=== PATIENT | female | born 1940 | race Caucasian/White ===

== ENCOUNTER 2018-05-26 05:57 | Day surgery (SDC) | payer MEDICARE ==
[2018-05-26] MEDS ORDERED: Buffered Lidocaine 0.9% SYRIN* 5 ML/SYR SYRINGE INTRADERM ONE (06:00)
[2018-05-26] MEDS ORDERED: ceFAZolin 2 GM PREMIX (*) 2 GM/50 ML BAG IVPB ONE (06:17)
[2018-05-26] MEDS ORDERED: Lidocaine 1%* 5 ML VIAL ONE ×3 (07:01→09:06)
[2018-05-26 07:05] LABS: ABS Basophils 0 10^3/ul (0-0.2); ABS Eosinophils 0.1 10^3/ul (0-0.6); ABS Lymphocytes 0.8 10^3/ul (1.0-4.8); ABS Monocytes 0.4 10^3/ul (0-0.8); ABS Neutrophils 2.3 10^3/ul (1.5-7.7); ABS Nucleated RBC 0 10^3/ul; Eosinophil % 1.4 % (0-6); Hematocrit 36 % (35-47); Hemoglobin 12.3 g/dl (12.0-16.0); Lymphocyte % 21.6 % (25-47); Mean Corpuscular HGB Conc 34 g/dl (31-36); Mean Corpuscular Hemoglobin 31 pg (27-31); Mean Corpuscular Volume 92 fL (80-97); Mean Platelet Volume 7.6 um3 (7.4-10.4); Nucleated Red Blood Cells % 0.1; Platelet Count 257 10^3/ul (150-450); Red Blood Count 3.95 10^6/ul (4.00-5.40); Red Cell Distribution Width 14 % (10.5-15); White Blood Count 3.6 10^3/ul (3.5-10.8)
[2018-05-26] MEDS ORDERED: Midazolam* 1 MG/ML 2 ML VIAL (2 MG) ONE (07:15)
[2018-05-26] MEDS ORDERED: fentaNYL* 50 MCG/ML 2 ML VIAL (100 MCG VIAL) ONE (07:15)
[2018-05-26 07:21] LABS: EGFR Non-African American 58.2 (>60)
[2018-05-26] MEDS ORDERED: Acetaminophen TAB* 325 MG PO PRN (07:31)
[2018-05-26] MEDS ORDERED: DiMENhydriNATE IV* 50 MG/ML VIAL IV PUSH PRN (07:31)
[2018-05-26] MEDS ORDERED: fentaNYL* 50 MCG/ML 2 ML VIAL (100 MCG VIAL) IV PRN (07:31)
[2018-05-26] MEDS ORDERED: Ondansetron INJ* 2 MG/ML VIAL IV PRN (07:31)
[2018-05-26] MEDS ORDERED: HYDROcodone/ACETAMIN 5-325 MG* 1 TAB PO PRN ×2 (07:31)
[2018-05-26] MEDS ORDERED: Naloxone* 0.4 MG/ML 1 ML VIAL IV PRN (07:31)
[2018-05-26] MEDS ORDERED: PROCHLORPERAZINE INJ 5 MG/ML 2 ML VIAL IV PRN (07:31)
[2018-05-26] MEDS ORDERED: Lidocaine 2% PF * 5 ML VIAL ONE (07:46)
[2018-05-26] MEDS ORDERED: diPHENhydraMINE IV* 50 MG/ML 1 ml VIAL (BENADRYL) ONE (07:49)
[2018-05-26] MEDS ORDERED: Propofol* 10 MG/ML 20 ML BTL IV PUSH ONE (08:28)
[2018-05-26] MEDS ORDERED: Famotidine IV* 10 MG/ML 2 ML (20 mg) ONE (08:28)
[2018-05-26] MEDS ORDERED: Dexamethasone IV* 4 MG/ML 1 ML (4 MG) ONE (08:28)
--- NOTE | 2018-05-26 08:42 | BRIEFOPN ---
Brief Operative Note - Surgery Procedures: OPERATIVE REPORT PRE-OP: Lymphoma POST-OP: Same PROCEDURE: Insertion of 8F left chest wall PowerPort SURGEON: MD Caryl ANESTHESIA:Local with MAC Dr. Gann ASST: none IVF:min EBL:min SPECIMEN:none DRAIN: none WOUND CLASS:One COMPLICATIONS: none TO PACU
--- NOTE | 2018-05-26 09:11 | RAD ---
HISTORY: s/p port placement COMPARISONS: April 29, 2014 VIEWS: 1: frontal portable view of the chest at 8:51 AM FINDINGS: LINES AND TUBES: A left-sided chest port is noted from subclavian approach with the tip overlying the cavoatrial junction. CARDIOMEDIASTINAL SILHOUETTE: The cardiomediastinal silhouette is normal for portable technique. PLEURA: The costophrenic angles are sharp. No pleural abnormalities are noted. LUNG PARENCHYMA: The lungs are clear. There is no appreciable pneumothorax. ABDOMEN: The upper abdomen is clear. There is no subphrenic gas. BONES AND SOFT TISSUES: No bone or soft tissue abnormalities are noted. IMPRESSION: LINES AND TUBES ABOVE. NO ACTIVE CARDIOPULMONARY DISEASE.
--- NOTE | 2018-05-26 09:12 | RAD ---
INDICATION: Chest port COMPARISONS: None relevant TECHNIQUE: Fluoroscopy was provided for a vascular access procedure. Total fluoroscopy time is: 53.2 seconds FINDINGS: Spot images demonstrate a left-sided chest port with the tip overlying the cavoatrial junction. IMPRESSION: FLUOROSCOPY WAS PROVIDED FOR A VASCULAR ACCESS PROCEDURE CPT II Codes: G9500
[2018-05-26] MEDS ORDERED: Acetaminophen TAB* 325 MG ONE (09:38)
[2018-05-26 10:01] VITALS: BP 141/69
--- NOTE | 2018-05-26 15:38 | PM ---
CC: Dr. Raquel Barber * [facility] NOTE: DATE OF PROCEDURE: 05/26/18 - SDS CHIEF COMPLAINT: Diffuse large B cell lymphoma. HISTORY: The patient is a 78-year-old female who was recently diagnosed with B cell lymphoma. We were contacted by Dr. Barber's office last week to see if we could perform a diagnostic lumbar puncture as a part of the workup for her B cell lymphoma. The patient was scheduled to undergo a PowerPort placement today. She was seen by Dr. Gann this morning preoperatively and he did discuss with the patient the procedure in detail and the risks, benefits, and alternatives to the procedure and obtained informed consent. The patient underwent the PowerPort placement and I am going to go ahead and do the diagnostic lumbar puncture. I had a chance to talk with the patient as well in the recovery area. She was awake and communicative and I did explain the procedure to her again and marked her back for the procedure. Informed consent was obtained. PROCEDURE: In the sitting position, her low back was prepped and draped in the usual sterile fashion. A 3 cc of 1% lidocaine was used for local anesthesia at the L3-L4 interspace. A 22-gauge introducer was passed into the interspinous space at L3-L4. A 3.5 inch 25-gauge Rena needle was passed through the introducer into the subarachnoid space with good free flow of clear cerebrospinal fluid. I collected 4 veils of cerebrospinal fluid. The needle and introducer were withdrawn. The CSF will be sent to the laboratory for analysis per Dr. Barber's orders. The patient tolerated the procedure well and she will follow up with Dr. Barber. [id number]/[facility] #: [id number] [facility] SYSTEMSusan
--- NOTE | 2018-05-27 03:35 | OP ---
CC: Dr. Raquel Barber, Oncology * DATE OF OPERATION: 05/26/18 - [facility] DATE OF : 38 SURGEON: Marlon Hutson MD ANESTHESIOLOGIST: Dr. Gann. ANESTHESIA: Local with monitored anesthesia care. PRE-OP DIAGNOSIS: Lymphoma. POST-OP DIAGNOSIS: Lymphoma. OPERATIVE PROCEDURE: Insertion of an 8-Malay left chest wall PowerPort. ESTIMATED BLOOD LOSS: Minimal. WOUND CLASSIFICATION: I. COMPLICATIONS: None. DRAINS: None. SPECIMENS: None. DESCRIPTION OF PROCEDURE: Written informed consent was obtained. The patient was taken to the operating room and placed in the supine position. The left chest wall was marked with indelible ink. The left and right chest and neck were prepped and draped in the usual sterile fashion. Time-out verification was completed. The patient was placed in Trendelenburg position. 1% lidocaine with epinephrine was infiltrated the area just below the left mid clavicular line. A 18-gauge Cook needle was then passed into the clavicle. Then on the first pass, the subclavian vein was punctured with good blood return. The guidewire was inserted under fluoroscopy into the right atrium. Next, a small transverse incision was made several centimeters below the initial puncture site in the chest wall and a subcutaneous pocket was made inferior to this, large enough to fit the port, which had been flushed. The catheter itself was then tunneled from the port site to the puncture site. Next, using the sheath dilator peel-away system under direct fluoroscopy, the catheter was placed into the right heart and adjusted in position at the junction between the right atrium in the superior vena cava. There was good blood return and it flushed nicely and the catheter was cut to the appropriate length, attached to the port in the usual fashion, which was placed into the pocket. The port was sutured into the pocket with 2 separate 3-0 Prolene sutures. The catheter flushed well and withdrew blood without difficulty. It was then flushed with heparin solution. Hemostasis was assured. The incisions were closed with running 3-0 and 4-0 Vicryl suture. Steri-Strips and occlusive sterile dressings were applied. The patient tolerated the procedure well and was taken to the recovery room in stable condition. Postprocedural chest x-ray showed the catheter to be in good position without evidence of pneumothorax. [id number]/[facility] #: [id number] [facility]OSPITALSusan
== END 2018-05-26 10:04 | disposition home or self-care (01) ==
LOC: OR 05:57
PROVIDERS: ATTEND Surgery
DX: C83.38 Diffuse large B-cell lymphoma, lymph nodes of multiple sites (principal); M51.37 Other intervertebral disc degeneration, lumbosacral region; Z79.891 Long term (current) use of opiate analgesic; J32.9 Chronic sinusitis, unspecified; K51.90 Ulcerative colitis, unspecified, without complications; Z79.899 Other long term (current) drug therapy; K57.90 Diverticulosis of intestine, part unspecified, without perforation or abscess without bleeding; M19.90 Unspecified osteoarthritis, unspecified site; I51.9 Heart disease, unspecified; R63.4 Abnormal weight loss
CPT/HCPCS: 36415; 71045; 76000; 80053; 85025; 85730; A9270-GY; C1788; J0690; J1100; J1200; J1642; J2250; J2704; J3010

== ENCOUNTER 2019-09-19 14:11 | Emergency (ER) | payer MEDICARE ==
--- OUTSIDE RECORDS SUMMARY | 2019-09-19 14:25 | XMS REPORT | Continuity of Care Document ---
:1940 External Reference #:[id number] Author Name Pavel Duke DO, MPH Address [address] [place] [address], [address] [place] [address] Care Team Providers Name Role Phone Karime Silva M.D. - Family Care Team Information Grant Administrator Medicine Raquel Barber M.D. - Medical Care Team Information Grant Administrator Oncology Problems Description No Information Available Social History Type Date Description Comments Sex Unknown ETOH Use Denies alcohol use Tobacco Use Start: Unknown Patient has never smoked Recreational Drug Use Denies Drug Use Smoking Status Reviewed: 09/11/19 Patient has never smoked Allergies, Adverse Reactions, Alerts Description No Known Drug Allergies Medications Active Medications SIG Qnty Indications Ordering Provider Date Gabapentin sig: take 1 30caps Pavel Duke DO, 06/30/2019 100mg capsules by mouth MPH Capsules every night. chronic pain. Oxycodone HCL si by mouth 45tabs Pavel Duke DO, 05/21/2019 5mg every 12 hours as MPH Tablets directed chronic pain patient Alprazolam si/2-1 by 45taPavel Headley DO, 05/01/2019 0.5mg mouth in the MPH Tablets morning and one at night Trazodone HCL si by mouth Unknown 100mg every night at Tablets bedtime as directed Probiotic 1 by mouth daily Unknown Tablets DR Atorvastatin Calcium 1 by mouth daily Unknown 10mg Tablets Multi Vitamin 1 by mouth daily Unknown Tablets Immunizations Description No Information Available Vital Signs Date Vital Result Comment 09/11/2019 1:16pm BP Systolic 120 mmHg BP Diastolic 74 mmHg Heart Rate 76 /min Respiratory Rate 20 /min Height 62 inches 5'2" Weight 132.00 lb Pain Level 6 Pain at this time. Pain Level With Medicine 5 on average with meds Pain Level Without Medicine 9 without meds Pain Level After Procedure 3 BP Systolic Recheck 116 mmHg Pulse:72 BP Diastolic Recheck 70 mmHg Pulse:72 BMI (Body Mass Index) 24.1 kg/m2 09/01/2019 2:00pm BP Systolic 122 mmHg BP Diastolic 70 mmHg Heart Rate 74 /min Respiratory Rate 20 /min Height 62 inches 5'2" Weight 131.00 lb Pain Level 6 Pain at this time. Pain Level With Medicine 5 on average with meds Pain Level Without Medicine 9 without meds BMI (Body Mass Index) 24.0 kg/m2 Results Description No Information Available Procedures Date Code Description Status 09/11/2019 64215 Injection For Nerve Block, Suprascapular Nerve Completed 09/11/201915256 Injection, Single Or Mutiple Trigger Points One Or Two Completed Muscles 09/11/2019 Injection, Tendon Origin/Insertion Completed 09/11/2019 Inject Tendon/Ligament Completed 07/30/2019 69632 Test Autonomic Nervous System, Sudomotor Completed 07/30/2019 45409 Test Autonomic Nervous System, Cardiovagal Innervation Completed 05/01/2019 24282 Brief Emotional/Behav Assessment W/ Scoring Doc Per Completed [facility] Medical Devices Description No Information Available Encounters Type Date Location Provider Dx Diagnosis Office Visit 09/11/2019 Main Office as Of Pavel Duke DO, G89.29 Other chronic pain 1:15p 12/05/13 MPH M54.2 Cervicalgia M65.88 Other synovitis and tenosynovitis, other site M46.02 Spinal enthesopathy, cervical region M79.12 Myalgia of auxiliary muscles, head and neck Office Visit 09/01/2019 2:00p Main Office as Pavel Duke G89.29 Other chronic Of 12/05/13 , MPH pain M54.2 Cervicalgia M54.5 Low back pain M43.16 Spondylolisthesis, lumbar region Z79.891 terminal system operator (current) use of opiate analgesic 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 nervous system Office Visit 07/30/2019 10:45a Main Office as Pavel Duke G89.29 Other chronic Of 12/05/13 DO, MPH pain M43.16 Spondylolisthesis, lumbar region M54.2 Cervicalgia M54.5 Low back pain Z79.891 senior living (current) use of opiate analgesic 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 nervous system Office Visit 06/30/2019 11:15a Main Office as Pavel Duke G89.29 Other chronic Of 12/05/13 DO, MPH pain M43.16 Spondylolisthesis, lumbar region Z79.891 senior living (current) use of opiate analgesic Office Visit 05/21/2019 9:45a Main Office as Pavel Duke G89.29 Other chronic Of 12/05/13 DO, MPH pain M54.5 Low back pain M43.16 Spondylolisthesis, lumbar region M48.061 Spinal stenosis, lumbar region without neurogenic doreen Z79.891 terminal system operator (current) use of opiate analgesic Office Visit 05/01/2019 9:00a Main Office as Pavel Duke G89.29 Other chronic Of 12/05/13 DO, MPH pain M54.5 Low back pain M43.16 Spondylolisthesis, lumbar region M48.061 Spinal stenosis, lumbar region without neurogenic doreen M54.2 Cervicalgia M25.561 Pain in right knee M79.604 Pain in right leg M79.641 Pain in right hand M79.601 Pain in right arm I67.9 Cerebrovascular disease, unspecified Z13.31 Encounter for screening for depression Z79.891 terminal system operator (current) use of opiate analgesic K51.819 Other ulcerative colitis with unspecified complications Z86.73 Prsnl hx of TIA (TIA), and cereb infrc w/o resid deficits 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, lymph nodes of head, face, and neck E78.2 Mixed hyperlipidemia F41.9 Anxiety disorder, unspecified Z71.89 Other specified counseling Z71.3 Dietary counseling and surveillance Assessments Date Code Description Provider 09/11/2019 G89.29 Other chronic pain Pavel Duke DO MPH 09/11/2019 M54.2 Cervicalgia Pavel Duke DO MPH 09/11/2019 M65.88 Other synovitis and tenosynovitis, other Duke, Pavel, DO , MPH site 09/11/2019 M46.02 Spinal enthesopathy, cervical region Duke, Pavel, DO, MPH 09/11/2019 M79.12 Myalgia of auxiliary muscles, head and neck Duke, Pavel, DO, MPH 09/01/2019 G89.29 Other chronic pain Duke, Pavel, DO, MPH 09/01/2019 M54.2 Cervicalgia Duke, Pavel, DO, MPH 09/01/2019 M54.5 Low back pain Duke, Pavel, DO, MPH 09/01/2019 M43.16 Spondylolisthesis, lumbar region Duke, Pavel, DO, MPH 09/01/2019 Z79.891 senior living (current) use of opiate analgesic Duke, Pavel , DO, MPH 09/01/2019 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, Pavel, DO , MPH nervous system 07/30/2019 G89.29 Other chronic pain Duke, Pavel, DO, MPH 07/30/2019 M43.16 Spondylolisthesis, lumbar region Duke, Pavel, DO, MPH 07/30/2019 M54.2 Cervicalgia Duke, Pavel, DO, MPH 07/30/2019 M54.5 Low back pain Duke, Pavel, DO, MPH 07/30/2019 Z79.891 terminal system operator (current) use of opiate analgesic Duke, Pavel , DO, MPH 07/30/2019 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, Pavel, DO , MPH nervous system 06/30/2019 G89.29 Other chronic pain Duke, Pavel, DO, MPH 06/30/2019 M43.16 Spondylolisthesis, lumbar region Duke, Pavel, DO, MPH 06/30/2019 Z79.891 senior living (current) use of opiate analgesic Duke, Pavel , DO, MPH 05/21/2019 G89.29 Other chronic pain Duke, Pavel, DO, MPH 05/21/2019 M54.5 Low back pain Duke, Pavel, DO, MPH 05/21/2019 M43.16 Spondylolisthesis, lumbar region Duke, Pavel, DO, MPH 05/21/2019 M48.061 Spinal stenosis, lumbar region without Duke, Pavel, DO, MPH neurogenic claudication 05/21/2019 Z79.891 terminal system operator (current) use of opiate analgesic Duke, Pavel , DO, MPH 05/01/2019 G89.29 Other chronic pain Duke, Pavel, DO, MPH 05/01/2019 M54.5 Low back pain Duke, Pavel, DO, MPH 05/01/2019 M43.16 Spondylolisthesis, lumbar region Duke, Pavel, DO, MPH 05/01/2019 M48.061 Spinal stenosis, lumbar region without Duke, Pavel, DO, MPH neurogenic claudication 05/01/2019 M54.2 Cervicalgia Duke, Pavel, DO, MPH 05/01/2019 M25.561 Pain in right knee Duke, Pavel, DO, MPH 05/01/2019 M79.604 Pain in right leg Duke, Pavel, DO, MPH 05/01/2019 M79.641 Pain in right hand Duke, Pavel, DO, MPH 05/01/2019 M79.601 Pain in right arm Duke, Pavel, DO, MPH 05/01/2019 I67.9 Cerebrovascular disease, unspecified Duke, Pavel, DO, MPH 05/01/2019 Z13.31 Encounter for screening for depression Duke, Pavel, DO, MPH 05/01/2019 Z79.891 senior living (current) use of opiate analgesic Duke, Pavel , DO, MPH 05/01/2019 K51.819 Other ulcerative colitis with unspecified Duke, Pavel, DO, MPH complications 05/01/2019 Z86.73 Personal history of transient ischemic Duke, Pavel, DO, MPH attack (TIA), and cerebral infarction without residual deficits 05/01/2019 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 Symptoms and complaints discussed and reviewed today. No significant changes in physical findings. Continue current medical pain management.M54.2 CervicalgiaComments:Chronic. Symptoms and complaints discussed and reviewed today. Physical findings warrant injection therapy. Continue current medical pain management. Injection therapy performed today. Informed consentgiven/refusal reviewed. See procedure sheet. Injection therapy will lower this patient's pain, increase ROM improve functionality and mitigate the need for increased medication.M65.88 Other synovitis and tenosynovitis, other siteComments:Chronic. Symptoms and complaints discussed and reviewed today. Physical findings reviewed and warrant intervention. Continue current medical pain management. Injection therapy today - tendon sheath. Informed consent given/refusal reviewed. See procedure sheet.M46.02 Spinal enthesopathy, cervical regionComments:Chronic. Symptoms and complaints discussed and reviewed today. Physical findings reviewed and warrant intervention. Patient is stable and comfortable with current medical therapy. Injection therapy today.Tendon I/ O injections performed. See procedure sheet.M79.12 Myalgia of auxiliary muscles , head and neckComments:Symptoms and complaints discussed and reviewed today. Physical findings reviewed and warrant intervention. Injection therapy today - Trigger Point injections. Informed consent given/refusal reviewed. See procedure sheet.AllComments:Continue current medical pain management; injection therapy, osteopathic manipulation, PT / modalities, and consults as needed to manage chronic pain.Non - opioid pain management discussed and optionsdiscussed.Side effects discussed; anticipatory guidance given. Patient clearly understand and agree with all medical treatments and suggestions. All medicines prescribed are adequate and appropriate for this patient's complaint of pain, medical history, physical, and personal goals.Goals of Treatment are to provide adequate and appropriate multidisciplinary medical pain management to increase/ maintain patient's quality of life and functionality while maintaining satisfactory side effect profile andminimizing chcf end-organ damage. Importance of regular nutrition throughout the day discussed.Activity as toleratedContinue with PCP Functional Status Description No Information Available Mental Status Description No Information Available Referrals Description No Information Available
--- OUTSIDE RECORDS SUMMARY | 2019-09-19 14:25 | XMS REPORT | Continuity of Care Document ---
:1940 External Reference #:[id number] Author Name Karime Basilio MD Address [address] [place] [address] Care Team Providers Name Role Phone Juan Alberto Gandhi MD Care Team Information Soap Tender [phone] Kemi Fagan - Ophthalmology Care Team Information Soap Tender Mariano Baeza MD - Obstetrics & Care Team Information Soap Tender [phone] Gynecology Diane Marino - Gastroenterology Care Team Information Soap Tender Jon Al MD Care Team Information Soap Tender [phone] Lyndsay Briscoe M.D. - Sports Medicine Care Team Information [facility]ap Tender [facility] - Pain Care Team Information Soap Tender Medicine Michael Bird - Cardiovascular Care Team Information Soap Tender Disease MoxeeJerardo sheldoneal - Therapeutic Care Team Information Soap Tender [phone] Radiology José Manuel Anderson MD - Care Team Information Soap Tender [phone] Gastroenterology Bashir Gómez DPM - Management Lecturer Care Team Information Soap Tender Andrey Mejias MD - Surgery Care Team Information Soap Tender Keegan Cadena DR Care Team Information Soap Tender [phone] Care Team Information Soap Tender [phone] Vinicio Cleveland MD Care Team Information Soap Tender [phone] Problems Active Problems Provider Date Backache Pamela Troy PA Onset: 03/12/2013 Spinal stenosis of lumbar region Pamela Troy PA Onset: 11/30/2011 Ulcerative colitis Basim Flores MD Onset: 11/19/2008 Degeneration of cervical intervertebral disc Karime Basilio MD Onset: 05/2019 Arthroplasty of knee Karime Basilio MD Onset: 09/18/2018 Disturbance in sleep behavior Karime Basilio MD Onset: 09/18/2018 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 Karime Basilio MD Onset: 2017 Mixed hyperlipidemia Karime Basilio MD Onset: 09/18/2018 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, face Karime Basilio MD Onset: and neck Cerebrovascular disease Karime Basilio MD Onset: 09/18/2018 History of cerebrovascular accident without Karime Basilio MD Onset: 09/18 residual deficits Liver function tests abnormal Karime Basilio MD Onset: 09/18/2018 Social History Type Date Description Comments Sex Unknown ETOH Use Rarely consumes alcohol Tobacco Use Start: Unknown Patient has never smoked Smoking Status Reviewed: 09/18/18 Patient has never smoked Exercise Exercises regularly tennis, walk, Type/Frequency calisthenics; 12/20/16 counselled 150min per week 93605 steps per day Allergies, Adverse Reactions, Alerts Description No Known Drug Allergies Medications Active Medications SIG Qnty Indications Ordering Provider Date Omeprazole 1 by mouth every 30caps R11.0 Karime Basilio, 06/05/2019 20mg day 30min before Capsules DR hoda meal, treat for 2 weeks then as needed Alprazolam 1/2-1 tab bid F43.25 Raquel Barber 05/07/2018 0.5mg prn MD Tablets G47.9 Atorvastatin Calcium 1 by mouth every 90tabs E78.2 Karime Basilio MD 10mg day Tablets Trazodone HCL take 1 tablet by 90tabs G47.9 Karime Basilio MD 100mg Tablets mouth at bedtime as needed Probiotic 1 by mouth every Unknown Capsules day Multivitamin Adult 1 by mouth every Unknown Tablets day Oxycodone HCL 1-2 q 4-6 hr prn Unknown 5mg Tablets History Medications Ondansetron HCL 1 by mouth 6tabs R11.0 Karime Basilio MD 05/25/2019 - 8mg every 12 hours 08/09/2019 Tablets as needed for nausea Medications Administered in Office Medication SIG Qnty Indications Ordering Provider Date Depo Medrol 40 MG Karime Basilio MD 03/13/2017 Injection Immunizations CPT Code Status Date Vaccine Reaction Lot # [id number] Given 07/30/2019 Influenza Vaccine, Inactivated, Subunit, [place] [address] Given 05/21/2019 Shingrix (Shingles) Zoster given at pharmacy Vaccine HZV, Recombinant, Subunit, Adj 64301 Given 03/19/2019 Shingrix (Shingles) Zoster Vaccine HZV, Recombinant, Subunit, Adj 37028 Given 08/05/2018 Fluzone Highdose Age 65 And Over Preservative & Antibiotic Free 63455 Given 09/05/2017 Pneumococcal 23 Immunization Im inj completed, Pt [id number] Adult Or Immunosuppressed tolerated well Patient 31345 Given 08/12/2017 Influenza Virus Vaccine,Quadrivalent,Split,Pr eserv Free, 0.5mL,[place] [address] Given 08/13/2016 Prevnar 13 Pneumococal [id number] Conjugate Vaccine 68989 Given 08/09/2016 Fluzone Highdose Age 65 And [facility] Over Preservative & Antibiotic Free 33460 Given 08/18/2014 Afluria Or Fluvirin Flu Vac Intramuscular 95520 Given 08/06/2013 Afluria Or Fluvirin Flu Vac Intramuscular 48721 Given 08/10/2008 Zoster (Zostavax) 14754 Given 08/10/2008 Zoster (Zostavax) 71758 Refused 12/20/2016 Tdap (Adacel) Ages 7 And Above Only Vital Signs Date Vital Result Comment 08/10/2019 8:42am Body Temperature 97.2 F Weight 130.00 lb Heart Rate 62 /min BP Systolic 138 mmHg BP Diastolic 72 mmHg Respiratory Rate 18 /min Height 61.5 inches 5'1.50" O2 % BldC Oximetry 99 % Ra BMI (Body Mass Index) 24.2 kg/m2 07/07/2019 11:36am Body Temperature 99.0 F Weight 127.00 lb Heart Rate 76 /min BP Systolic 122 mmHg BP Diastolic 70 mmHg Respiratory Rate 18 /min Height 61.5 inches 5'1.50" O2 % BldC Oximetry 98 % ra BMI (Body Mass Index) 23.6 kg/m2 Results Test Date Facility Test Result H/L Range Note Hepatic Panel (LFT) 06/26/2019 [facility] Total Protein 5.8 g/dL Low 6.0- 8.0 1 Albumin 3.9 g/dL 3.6-4.9 Total Bilirubin 0.5 mg/dL 0.1-1.3 Direct Bilirubin 0.1 mg/dL 0.0-0.4 Alkaline Phosphatase 101 U/L 24-140 Alt 29 U/L 3-42 Ast 26 U/L 8-42 Alk Phos Isoenzymes-RL 06/26/2019 [facility] Alk Phos Total 103 U/L 2 Alk Phos Liver Calc 77 U/L 3 Alk Phos Bone Calc 26 U/L 4 Alk Phos Other Calc 0 U/L 5 CBC with Auto Diff-fcmg 06/05/2019 [facility] WBC 4.5 K/uL 4.1-11.0 6 RBC 4.40 M/uL 4.00-5.40 Hemoglobin 14.0 gm/dL 12.0-16.0 Hematocrit 41.5 % 36.0-47.0 MCV 94.4 fL 80.0-97.0 MCH 31.9 pg 27.0-32.0 MCHC 33.8 g/dL 32.0-36.0 RDW 13.4 % 11.5-14.5 PLT Count 207 K/ul 140-400 MPV 9.3 FL 7.1-10.7 Neutrophil 68.5 % 35.0-75.0 Lymphocyte 21.1 % 16.0-52.0 Monocyte 9.5 % 2.0-10.0 Eosinophil 0.3 % 0.0-5.0 Basophil 0.6 % 0.0-4.0 Abs Neutrophils 3.1 K/uL 2.1-8.0 Abs Lymphocytes 0.9 K/uL 0.8-5.5 Abs Monocytes 0.4 K/uL 0.1-1.0 Abs Eosinophils 0.0 K/uL 0.0-0.5 Abs Basophils 0.0 K/uL 0.0-0.3 Urinalysis With 06/04/2019 [facility] Urine Color YELLOW Yellow 7 Microscopic (315)- - Urine Clarity CLEAR Clear Urine Glucose - Dipstick NEGATIVE mg/dL Negative Urine Bilirubin - Dipstick NEGATIVE Negative Urine Ketone NEGATIVE mg/dL Negative Urine Specific [place] <= 1.005 Low 1.010-1.030 Urine Blood TRACE Negative Urine PH 6.5 Normal 6.5-7.5 Urine Protein - Dipstick NEGATIVE mg/dL Negative Urine Urobilinogen - Dipstick 0.2 E.U./dL Normal 0.2-1.0 Urine Nitrite - Dipstick NEGATIVE Negative Urine Leuk Esterase SMALL Abnormal Negative Urine RBC 0-2 rbc/hpf 0-2 Urine WBC 0-2 wbc/hpf 0-7 Urine Epithelial Cells VERY FEW /lpf None Seen Urine Bacteria VERY FEW None Seen Source: URINE, CLEAN CAT <SEE NOTE> 8 Comprehensive Metabolic 06/04/2019 [facility] Glucose 126 mg/dL High 74-106 Panel (315)- - BUN 12 mg/dL Normal 7-18 Creatinine 0.9 mg/dL Normal 0.6-1.3 Glom Filtration Rate, Estimate >60 mL/min >60 If >60 mL/min >60 9 BUN/Creat 13.3 ratio Sodium 140 mmol/L Normal 136-145 Potassium 3.9 mmol/L Normal 3.5-5.1 Chloride 107 mmol/L Normal 98-107 Carbon Dioxide 26 mmol/L Normal 21-32 Anion Gap 7 mEq/L Low 8-16 Calcium 9.2 mg/dL Normal 8.5-10.1 Total Protein 6.9 g/dL Normal 6.4-8.2 Albumin 3.5 g/dL Normal 3.4-5.0 Globulin 3.4 g/dL Normal 1.9-4.3 Alb/Glob 1.0 ratio Bilirubin,Total 0.4 mg/dL Normal 0.2-1.0 Sgot/Ast 26 U/L Normal 15-37 SGPT/Alt 36 U/L Normal 12-78 Alkaline Phosphatase 132 U/L High 45-117 Laboratory test 06/04/2019 [facility] Lipase 194 U/L Normal 56-289 finding (315)- - CBS W/Automated 06/04/2019 [facility] White Blood 5.9 K/ uL Normal 3.1-10.7 Diff (315)- - Count Red Blood Count 4.51 M/uL Normal 3.90-5.40 Hemoglobin 14.3 gm/dL Normal 11.6-15.8 Hematocrit 42.9 % Normal 36.0-46.1 Mean Cell Volume 95.1 fl Normal 80.9-99.0 Mean Corpuscular HGB 31.7 pg Normal 25.9-32.7 Mean Corpuscular HGB Conc 33.3 g/dL Normal 30.8-34.3 Platelet Count 224 K/uL Normal 155-360 Red Cell Distri Width SD 46.8 fl Normal 36-47 Red Cell Distri Width %CV 13.4 % Normal 11.7-14.4 Mean Platelet Volume 11.4 fl Normal 8.9-12.4 Neut% 75.3 % High 40.4-72.8 Lymph % 14.4 % Low 20.0-42.0 [place] % 8.4 % Normal 4.3-13.2 Eo% 1.2 % Normal 0.0-6.6 Bas% 0.5 % Normal 0.0-1.1 Immature Grans 0.2 % Normal 0.0-5.0 NRBC % 0.0 /100WBC < 10/ 100 WBC Neut# 4.41 K/uL Normal 1.8-7.0 Lymph # 0.84 K/uL Low 1.0-4.0 [place] # 0.49 K/uL Normal 0.3-0.9 Eos # 0.07 K/uL Normal 0.0-0.5 Baso # 0.03 K/uL Normal 0.0-0.1 Immature Grans Absolute 0.01 K/uL NRBC # 0.00 K/uL Protime 06/04/2019 [facility] Protime 13.2 seconds Normal 12.0-14.4 (315)- - Inr 1.0 Normal 0.9-1.1 10 Laboratory test 06/04/2019 [facility] Act Partial 26.6 seconds Normal 23.4-35.0 11 finding (315)- - Thrombo Time Laboratory test 06/04/2019 [facility] Occult NEGATIVE Negative 12 finding (315)- - Blood,Stool Lactic Acid 06/04/2019 [facility] Lactic Acid 1.9 mmol/L Normal 0.4-1.9 (315)- - Lab Reflex >2.0 for Sepsis? Y [facility] 05/25[facility]2019 [facility] WBC 4.1 K/uL 4.1-11.0 13 RBC 4.19 M/uL 4.00-5.40 Hemoglobin 13.7 gm/dL 12.0-16.0 Hematocrit 39.9 % 36.0-47.0 MCV 95.2 fL 80.0-97.0 MCH 32.7 pg High 27.0-32.0 MCHC 34.3 g/dL 32.0-36.0 RDW 13.6 % 11.5-14.5 PLT Count 194 K/ul 140-400 MPV 9.3 FL 7.1-10.7 Neutrophil 70.1 % 35.0-75.0 Lymphocyte 15.7 % Low 16.0-52.0 Monocyte 10.7 % High 2.0-10.0 Eosinophil 3.0 % 0.0-5.0 Basophil 0.5 % 0.0-4.0 Abs Neutrophils 2.9 K/uL 2.1-8.0 Abs Lymphocytes 0.7 K/uL Low 0.8-5.5 Abs Monocytes 0.4 K/uL 0.1-1.0 Abs Eosinophils 0.1 K/uL 0.0-0.5 Abs Basophils 0.0 K/uL 0.0-0.3 Comprehensive Met Panel-[facility] 05/25/2019 [facility] Sodium 143 mmol/L 135- 146 14 Potassium 4.4 mmol/L 3.5-5.2 Chloride# 105 mmol/L 97-110 15 Carbon Dioxide 30 mmol/L 24-34 Calcium 9.2 mg/dL 8.5-10.5 16 Glucose 100 mg/dL 70-105 BUN 12 mg/dL 6-26 Creatinine 0.7 mg/dL 0.5-1.4 Total Protein 5.8 g/dL Low 6.0-8.0 Albumin 3.8 g/dL 3.6-4.9 Globulin 2.0 g/dL 2.0-3.5 A/G Ratio 1.9 Ratio 1.0-2.2 Total Bilirubin 0.4 mg/dL 0.1-1.3 Alkaline Phosphatase 149 U/L High 24-140 Alt 52 U/L High 3-42 Ast 35 U/L 8-42 Anion Gap 8 mmol/L 5-15 17 Female Egfr 80 >60 18 Male Egfr 89 >60 19 Comprehensive Met Panel-[facility] 03/11/2019 [facility] Sodium 141 mmol/L 135- 146 20, 21 Potassium 4.2 mmol/L 3.5-5.2 Chloride# 103 mmol/L 97-110 22 Carbon Dioxide 30 mmol/L 24-34 Calcium 9.7 mg/dL 8.5-10.5 23 Glucose 101 mg/dL 70-105 BUN 11 mg/dL 6-26 Creatinine 0.8 mg/dL 0.5-1.4 Total Protein 6.1 g/dL 6.0-8.0 Albumin 4.2 g/dL 3.6-4.9 Globulin 1.9 g/dL Low 2.0-3.5 A/G Ratio 2.2 Ratio 1.0-2.2 Total Bilirubin 0.7 mg/dL 0.1-1.3 Alkaline Phosphatase 109 U/L 24-140 Alt 31 U/L 3-42 Ast 28 U/L 8-42 Anion Gap 8 mmol/L 5-15 24 Female Egfr 66 >60 25 Male Egfr 83 >60 26 Laboratory test finding 03/11/2019 [facility] CPK 84 U/L 12-199 Lipid 03/11/2019 [facility] Cholesterol 202 mg/dL High 50-199 Triglycerides 73 mg/dL 30-200 HDL 80 mg/dL 35-85 27 Chol/ HDL Ratio 2.5 ratio Low 3.7-5.6 VLDL 15 mg/dL 2-29 LDL (Calc) 107 mg/dL High 20-99 28 1 elev labs, recheck in 1 mo 2 Reference range: 40 to 120 3 Reference range: 0 to 94 INTERPRETIVE INFORMATION: Alk-Phosphatase Liver Calc Bone Specific Alkaline Phosphatase (3455926) and 5'-nucleotidase ([id number]) may be useful in identifying disorders of bone and liver, respectively. 4 Reference range: 0 to 55 5 Performed by [facility], [address] [place] [id number] [email or web address], Aaron Koo MD, Lab. Director Unless otherwise specified, testing performed by [facility], [address] [address] 6 today letter [address] BASILIO,BLCK STOOLS,NAUSEA 8 URINE, CLEAN CATCH 9 Note: Persistent reduction for 3 months or more in an eGFR <60 mL/min/1.73 m2 defines CKD. Patients with eGFR values >/=60 mL/min/1.73 m2 may also have CKD if evidence of persistent proteinuria is present. The original MDRD equation for estimated GFR is not valid for patients less than 18 years of age. Additional information may be found at www.kdoqi.org. 10 THERAPEUTIC INR RANGE: 2.0 - 3.0 DVT, Pulmonary embolus, prophylaxis against venous thrombosis or systemic embolization in high risk patients. 2.5 - 3.5 Mechanical heart valves 11 Is patient on anticoagulants? Coumadin 12 Method: Synovex Hemoccult Card 13 today tc for nausea/dizziness 14 Updated reference range on new analyzer 15 Updated reference range on new analyzer 16 Updated reference range 03-04-2019 17 Updated Reference Range 18 Concerning GFR Guidelines for Americans: Normal function or mild renal disease, if clinically at risk: >/= 60 mL/min Moderately decreased: 30-59 Severely decreased: 15-29 Renal failure: <15 There is reduced accuracy above 60ml/min/1.73 m squared, but the numeric value may be clinically useful in the near 60 range 19 Concerning GFR Guidelines: Normal function or mild renal disease, if clinically at risk: >/= 60 mL/min Moderately decreased: 30-59 Severely decreased: 15-29 Renal failure: <15 There is reduced accuracy above 60ml/min/1.73 m squared, but the numeric value may be clinically useful in the near 60 range Glomerular Filtration Rate (GFR) is estimated based on the CKD-EPI equation, which assumes a steady state for creatinine as recommended by the National Kidney Disease Education Program in conjunction with the National Institutes of Health and the National Kidney Foundation. Clinical conditions in which it may be necessary to measure GFR by using clearance methods include extremes of age and body size, severe malnutrition or obesity, diseases of skeletal muscle, paraplegia or quadriplegia, vegetarian diet, rapidly changing kidney function, and calculation of the dose of potentially toxic drugs that are excreted by the kidneys. 20 before visit 03/2019 21 Updated reference range on new analyzer 22 Updated reference range on new analyzer 23 Updated reference range 03-04-2019 24 Updated Reference Range 25 Concerning GFR Guidelines for Americans: Normal function or mild renal disease, if clinically at risk: >/= 60 mL/min Moderately decreased: 30-59 Severely decreased: 15-29 Renal failure: <15 There is reduced accuracy above 60ml/min/1.73 m squared, but the numeric value may be clinically useful in the near 60 range 26 Concerning GFR Guidelines: Normal function or mild renal disease, if clinically at risk: >/= 60 mL/min Moderately decreased: 30-59 Severely decreased: 15-29 Renal failure: <15 There is reduced accuracy above 60ml/min/1.73 m squared, but the numeric value may be clinically useful in the near 60 range Glomerular Filtration Rate (GFR) is estimated based on the CKD-EPI equation, which assumes a steady state for creatinine as recommended by the National Kidney Disease Education Program in conjunction with the National Institutes of Health and the National Kidney Foundation. Clinical conditions in which it may be necessary to measure GFR by using clearance methods include extremes of age and body size, severe malnutrition or obesity, diseases of skeletal muscle, paraplegia or quadriplegia, vegetarian diet, rapidly changing kidney function, and calculation of the dose of potentially toxic drugs that are excreted by the kidneys. 27 Per NCEP ATP III Guidelines: Results lower than 40 mg/dL are suggestive of increased risk for coronary artery disease. Results > or = to 60 mg/dL are considered a negative risk factor. 28 Per NCEP ATP III Guidelines: Normal Population <130 Patients with medical conditions: CHD/DM Optimal: <100 Borderline high: 130-159 High: 160-189 Very high: >189 Procedures Date Code Description Status 03/18/2019 50061 Brief Emotional/Behav Assessment W/ Scoring Doc Per Completed Standard Inst 01/09/2019 15698792 Colonoscopy Completed 11/13/2016 473999383 Bone Mineral Density Test Completed 09/01/2015 00480291 Colonoscopy Completed Medical Devices Description No Information Available Encounters Type Date Location Provider Dx Diagnosis Office Visit 07/07/2019 [facility] Karime Basilio, N94.810 Vulvar vestibulitis 11:30a R10.31 RIGHT lower quadrant pain M48.061 Spinal stenosis, lumbar region without neurogenic doreen M51.36 Other intervertebral disc degeneration, lumbar region R10.2 Pelvic and perineal pain Office Visit 06/29/2019 11:30a [facility] Karime Basilio MD K13.79 Other lesions of oral mucosa 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, lymph nodes of head, face, and neck Office Visit 06/05/2019 1:15p [facility] Karime Basilio MD R11.0 Nausea R42 Dizziness and giddiness R19.5 Other fecal abnormalities G47.9 Sleep disorder, unspecified Office Visit 05/25/2019 10:00a [facility] Karime Basilio MD R11.0 Nausea R42 Dizziness and giddiness I95.1 Orthostatic hypotension 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, lymph nodes of head, face, and neck L29.8 Other pruritus Office Visit 03/18/2019 8:45a [facility] Karime Basilio MD 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, lymph nodes of head, face, and neck E78.2 Mixed hyperlipidemia F41.9 Anxiety disorder, unspecified Z86.73 Prsnl hx of TIA (TIA), and cereb infrc w/o resid deficits I67.9 Cerebrovascular disease, unspecified M48.061 Spinal stenosis, lumbar region without neurogenic doreen M51.36 Other intervertebral disc degeneration, lumbar region K51.819 Other ulcerative colitis with unspecified complications F43.25 Adjustment disorder w mixed disturb of emotions and conduct G47.9 Sleep disorder, unspecified M25.561 Pain in RIGHT knee Assessments Date Code Description Provider 08/10/2019 M51.36 Other intervertebral disc degeneration, Karime Basilio MD lumbar region 08/10/2019 M48.061 Spinal stenosis, lumbar region without Karime Basilio MD neurogenic claudicati 08/10/2019 M50.30 Other cervical disc degeneration, unspecified Karime Basilio MD cervical region 07/07/2019 N94.810 Vulvar vestibulitis Karime Basilio MD 07/07/2019 R10.31 RIGHT lower quadrant pain aKrime Basilio MD 07/07/2019 M48.061 Spinal stenosis, lumbar region without Karime Basilio MD neurogenic claudicati 07/07/2019 M51.36 Other intervertebral disc degeneration, Karime Basilio MD lumbar region 07/07/2019 R10.2 Pelvic and perineal pain Karime Basilio MD 06/29/2019 K13.79 Other lesions of oral mucosa Karime Basilio MD 06/29/2019 C85.11 Unspecified B-cell lymphoma, lymph nodes of Karime Basilio MD head, face, and 06/26/2019 R94.5 Abnormal results of liver function studies Karime Basilio MD 06/26/2019 R94.5 Abnormal results of liver function studies Schedule, Laboratory 06/26/2019 R94.5 Abnormal results of liver function studies [facility] 06/05/2019 R11.0 Nausea Karime Basilio MD 06/05/2019 R11.0 Nausea Karime Basilio MD 06/05/2019 R19.5 Other fecal abnormalities Karime Basilio MD 06/05/2019 R42 Dizziness and giddiness Karime Basilio MD 06/05/2019 R19.5 Other fecal abnormalities Karime Bsailio MD 06/05/2019 G47.9 Sleep disorder, unspecified Karime Basilio MD 06/05/2019 R11.0 Nausea Schedule, Laboratory 06/05/2019 R19.5 Other fecal abnormalities Schedule, Laboratory 06/05/2019 R11.0 Nausea [facility] 06/05/2019 R19.5 Other fecal abnormalities [facility] 05/25/2019 R11.0 Nausea Karime Basilio MD 05/25/2019 R11.0 Nausea Karime Basilio MD 05/25/2019 R42 Dizziness and giddiness Karime Basilio MD 05/25/2019 R42 Dizziness and giddiness Karime Basilio MD 05/25/2019 I95.1 Orthostatic hypotension Karime Basilio MD 05/25/2019 I95.1 Orthostatic hypotension Karime Basilio MD 05/25/2019 C85.11 Unspecified B-cell lymphoma, lymph nodes of Karime Basilio MD head, face, and 05/25/2019 L29.8 Other pruritus Karime Basilio MD 05/25/2019 R11.0 Nausea Schedule, Laboratory 05/25/2019 R42 Dizziness and giddiness Schedule, Laboratory 05/25/2019 I95.1 Orthostatic hypotension Schedule, Laboratory 05/25/2019 R11.0 Nausea [facility] 05/25/2019 R42 Dizziness and giddiness [facility] 05/25/2019 I95.1 Orthostatic hypotension [facility] 03/18/2019 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 Karime Basilio MD 03/18/2019 C85.11 Unspecified B-cell lymphoma, lymph nodes of Karime Basilio MD head, face, and 03/18/2019 E78.2 Mixed hyperlipidemia Karime Basilio MD 03/18/2019 F41.9 Anxiety disorder, unspecified Karime Basilio MD 03/18/2019 Z86.73 Personal history of transient ischemic attack Karime Basilio MD (TIA), and cer 03/18/2019 I67.9 Cerebrovascular disease, unspecified Karime Basilio MD 03/18/2019 M48.061 Spinal stenosis, lumbar region without Karime Basilio MD neurogenic claudicati 03/18/2019 M51.36 Other intervertebral disc degeneration, Karime Basilio MD lumbar region 03/18/2019 K51.819 Other ulcerative colitis with unspecified Karime Basilio MD complications 03/18/2019 F43.25 Adjustment disorder with mixed disturbance of Karime Basilio MD emotions and c 03/18/2019 G47.9 Sleep disorder, unspecified Karime Basilio MD 03/18/2019 M25.561 Pain in RIGHT knee Karime Basilio MD 03/11/2019 E78.2 Mixed hyperlipidemia Karime Basilio MD 03/11/2019 E78.2 Mixed hyperlipidemia Schedule, Laboratory 03/11/2019 E78.2 Mixed hyperlipidemia [facility] Plan of Treatment Future Appointment(s):09/22/2019 9:00 am - Karime Basilio MD at [facility]2018 8:05 am - Schedule, Laboratory at [facility]08/10/2019 - Karime Basilio MDM51.36 Other intervertebral disc degeneration, lumbar regionComments:pt wants surgical opinion referral to neuro surgery Dr Espinoza, may want 2nd opinion Dr Ferreira, she wll call for that.Referral:Vinicio Cleveland MD,M48.061 Spinal stenosis, lumbar region without neurogenic claudicatiReferral:Vinicio Cleveland MD,M50.30 Other cervical disc degeneration, unspecified cervical regionComments:cervical disc degeneration on xrays, wants neurosurg opinion referal doneReferral:Vinicio Cleveland MD, Functional Status Description No Information Available Mental Status Description No Information Available Referrals Refer to Dr Reason for Referral Status Appt Date Vinicio Cleveland MD 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 no sat/ AM [address] [place] [address] [place] [address] [phone] groin aching, known spinal stenosis Scheduled 2018 ,patient is concerned for other causes Scheduled with Giulia, patient aware of appt. 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 -TRS 03/18 [facility] [address] [place] [address] [phone] yrs ago right knee torn meniscus dx by Closed 03/24/2019 [place], would liek to have reeval , and has heel pain faxed direct 03/18 -TRS Scheduled with Collin ANDERSON on pt's home regarding appt date, time and location. -TRS 03/18 [facility] [address] [place] [address] [phone]
--- OUTSIDE RECORDS SUMMARY | 2019-09-19 14:25 | XMS REPORT | Continuity of Care Document ---
:1940 External Reference #:[id number] Author Name Pavel Duke DO, MPH Address [address] [place] [address], [address] [place] [address] Care Team Providers Name Role Phone Karime Silva M.D. - Family Care Team Information Yarn Mercerizer Operator Helper [phone] Medicine Raquel Barber M.D. - Medical Care Team Information Yarn Mercerizer Operator Helper Oncology Problems Description No Information Available Social History Type Date Description Comments Sex Unknown ETOH Use Denies alcohol use Tobacco Use Start: Unknown Patient has never smoked Recreational Drug Use Denies Drug Use Smoking Status Reviewed: 07/30/19 Patient has never smoked Allergies, Adverse Reactions, Alerts Description No Known Drug Allergies Medications Active Medications SIG Qnty Indications Ordering Provider Date Gabapentin sig: take 1 30caps Pavel Duke DO, 06/30/2019 100mg capsules by mouth MPH Capsules every night. chronic pain. Oxycodone HCL si by mouth 45tabs Pavel Duke DO, 05/21/2019 5mg every 12 hours as MPH Tablets directed chronic pain patient Alprazolam si by mouth 30tabs Pavel Duke DO, 05/01/2019 0.5mg in the morning MPH Tablets Trazodone HCL si by mouth Unknown 100mg every night at Tablets bedtime as directed Probiotic 1 by mouth daily Unknown Tablets DR Atorvastatin Calcium 1 by mouth daily Unknown 10mg Tablets Multi Vitamin 1 by mouth daily Unknown Tablets Immunizations Description No Information Available Vital Signs Date Vital Result Comment 07/30/2019 10:39am BP Systolic 118 mmHg BP Diastolic 72 mmHg Heart Rate 74 /min Respiratory Rate 20 /min Height 62 inches 5'2" Weight 126.00 lb Pain Level 6 Pain at this time. Pain Level With Medicine 5 on average with meds Pain Level Without Medicine 9 without meds BMI (Body Mass Index) 23.0 kg/m2 06/30/2019 11:33am BP Systolic 112 mmHg BP Diastolic 68 mmHg Heart Rate 64 /min Respiratory Rate 20 /min Height 62 inches 5'2" Weight 126.00 lb Pain Level 5 Pain at this time. Pain Level With Medicine 4 on average with meds Pain Level Without Medicine 9 without meds BMI (Body Mass Index) 23.0 kg/m2 Results Description No Information Available Procedures Date Code Description Status 05/01/2019 99999 Brief Emotional/Behav Assessment W/ Scoring Doc Per Completed Standard Inst Medical Devices Description No Information Available Encounters Type Date Location Provider Dx Diagnosis Office Visit 06/30/2019 Main Office as Of Pavel Duke DO G89.29 Other chronic pain 11:15a 12/05/13 MPH M43.16 Spondylolisthesis, lumbar region Z79.891 exterminator (current) use of opiate analgesic Office Visit 05/21/2019 9:45a Main Office as Pavel Duke G89.29 Other chronic Of 12/05/13 , MPH pain M54.5 Low back pain M43.16 Spondylolisthesis, lumbar region M48.061 Spinal stenosis, lumbar region without neurogenic doreen Z79.891 exterminator (current) use of opiate analgesic Office Visit 05/01/2019 9:00a Main Office as Pavel Duke G89.29 Other chronic Of 12/05/13 , MPH pain M54.5 Low back pain M43.16 Spondylolisthesis, lumbar region M48.061 Spinal stenosis, lumbar region without neurogenic doreen M54.2 Cervicalgia M25.561 Pain in right knee M79.604 Pain in right leg M79.641 Pain in right hand M79.601 Pain in right arm I67.9 Cerebrovascular disease, unspecified Z13.31 Encounter for screening for depression Z79.891 USP (current) use of opiate analgesic K51.819 Other [...] and surveillance Assessments Date Code Description Provider 07/30/2019 G89.29 Other chronic pain Duke, Pavel, DO, MPH 07/30/2019 M43.16 Spondylolisthesis, lumbar region Duke, Pavel, DO, MPH 07/30/2019 M54.2 Cervicalgia Duke, Pavel, DO, MPH 07/30/2019 M54.5 Low back pain Duke, Pavel, DO, MPH 07/30/2019 Z79.891 exterminator (current) use of opiate analgesic Duke, Pavel , DO, MPH 07/30/2019 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, Pavel, DO , MPH nervous system 06/30/2019 G89.29 Other chronic pain Duke, Pavel, DO, MPH 06/30/2019 M43.16 Spondylolisthesis, lumbar region Duke, Pavel, DO, MPH 06/30/2019 Z79.891 exterminator (current) use of opiate analgesic Duke, Pavel , DO, MPH 05/21/2019 G89.29 Other chronic pain Duke, Pavel, DO, MPH 05/21/2019 M54.5 Low back pain Duke, Pavel, DO, MPH 05/21/2019 M43.16 Spondylolisthesis, lumbar region Duke, Pavel, DO, MPH 05/21/2019 M48.061 Spinal stenosis, lumbar region without Duke, Pavel, DO, MPH neurogenic claudication 05/21/2019 Z79.891 USP (current) use of opiate analgesic Duke, Pavel , DO, MPH 05/01/2019 G89.29 Other chronic pain Duke, Pavel, DO, MPH 05/01/2019 M54.5 Low back pain Duke, Pavel, DO, MPH 05/01/2019 M43.16 Spondylolisthesis, lumbar region Duke, Pavel, DO, MPH 05/01/2019 M48.061 Spinal stenosis, lumbar region without Duke, Pavel, DO, MPH neurogenic claudication 05/01/2019 M54.2 Cervicalgia Pavel Duke DO, MPH 05/01/2019 M25.561 Pain in right knee Pavel Duke DO MPH 05/01/2019 M79.604 Pain in right leg Pavel Duke DO, MPH 05/01/2019 M79.641 Pain in right hand Pavel Duke DO MPH 05/01/2019 M79.601 Pain in right arm Pavel Duke DO MPH 05/01/2019 I67.9 Cerebrovascular disease, unspecified Pavel Duke DO, MPH 05/01/2019 Z13.31 Encounter for screening for depression Pavel Duke DO, MPH 05/01/2019 Z79.891 USP (current) use of opiate analgesic Pavel Duke DO, MPH 05/01/2019 K51.819 Other ulcerative colitis with unspecified Pavel Duke DO, MPH complications 05/01/2019 Z86.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), and cerebral infarction without residual deficits 05/01/2019 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 Pavel Duke DO , MPH 05/01/2019 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 Symptoms and complaints discussed and reviewed today. No significant changes in physical findings. Continue current medical pain management.M43.16 Spondylolisthesis, lumbar regionComments:Chronic. Symptoms and complaints discussed and reviewed today. No significant changes in physical findings. Continue current medical pain management.M54.2 CervicalgiaComments: Chronic. Symptoms and complaints discussed and reviewed today. No significant changes in physical findings. Continue current medical pain management.M54.5 Low back painComments:Chronic. Symptoms and complaints discussed and reviewed today.No changes in physical findings. Patient is stable and comfortable when current medical therapy is rendered.Z79.891 USP (current) use of opiate analgesicNew Labs:Urine Drug Screen, Ordered: 07/30/19Comments:Urine drug screen sample taken today to monitor opiate use and to monitor use of illicit substances.Will discuss results at next appointment.The following tests were ordered:6 AM, AMPH, MAIA, WALTER, BUP, CARIS, COCM, COT, ETG, FENT, MCSHSG, OPI, OXY, PCP, TAPEN, XTSY, ZOLP. A urine drug test (UDT) was ordered for this patient and collected on site today. Creatinine has been ordered as well for specimen validity, not for kidney function. Preliminary UDT results are not final and should not be used to determine patient care or plan of treatment. Initially a qualitative immunoassay screen will be done. Any inconsistent or positive findings will be further tested with a more comprehensive quantitative confirmation LCMS study. It is part of the treatment process of prescribing controlled substances and is considered standard of care.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 nervous systemNew Orders:Sudomotor Test, Ordered: 07/30/19Comments:Sudomotor testing ordered to determine the effect, if any, of chronic illness and pain on small nerve fibers and/or autonomic nervous system function. Future testing will help to monitor the effects ofchronic illness, pain and subsequent treatments on the autonomic nervous system. If proper diagnosis and monitoring of ANS and/or small pain fiber problems is not appropriately addressed, adequate pain management may not be achieved.AllComments:Continue current medical pain management; injection therapy, osteopathic [...] while maintaining satisfactory side effect profile andminimizing half-way end-organ damage. Importance of regular nutrition throughout the day discussed.Activity as toleratedContinue with PCP Functional Status Description No Information Available Mental Status Description No Information Available Referrals Description No Information Available
--- OUTSIDE RECORDS SUMMARY | 2019-09-19 14:25 | XMS REPORT | Continuity of Care Document ---
:1940 External Reference #:[id number] Author Name Pavel Duke DO, MPH Address [address] [place] [address], [address] [place] [address] Care Team Providers Name Role Phone Karime Silva M.D. - Family Care Team Information Arts Administrator [phone] Medicine Raquel Barber M.D. - Medical Care Team Information Arts Administrator Oncology Problems Description No Information Available Social History Type Date Description Comments Sex Unknown ETOH Use Denies alcohol use Tobacco Use Start: Unknown Patient has never smoked Recreational Drug Use Denies Drug Use Smoking Status Reviewed: 09/01/19 Patient has never smoked Allergies, Adverse Reactions, [...] Available Vital Signs Date Vital Result Comment 09/01/2019 2:00pm BP Systolic 122 mmHg BP Diastolic 70 mmHg Heart Rate 74 /min Respiratory Rate 20 /min Height 62 inches 5'2" Weight 131.00 lb Pain Level 6 Pain at this time. Pain Level With Medicine 5 on average with meds Pain Level Without Medicine 9 without meds BMI (Body Mass Index) 24.0 kg/m2 07/30/2019 10:39am BP Systolic 118 mmHg BP [...] Information Available Procedures Date Code Description Status 07/30/2019 06950 Test Autonomic Nervous System, Sudomotor Completed 07/30/2019 68155 Test Autonomic Nervous System, Cardiovagal Innervation Completed 05/01/2019 10594 Brief Emotional/Behav Assessment W/ Scoring Doc Per Completed Standard Inst Medical Devices Description No Information Available Encounters Type Date Location Provider Dx Diagnosis Office Visit 07/30/2019 Main Office as Of Pavel Duke DO G89.29 Other chronic pain 10:45a 12/05/13 MPH M43.16 Spondylolisthesis, lumbar region M54.2 Cervicalgia M54.5 Low back pain Z79.891 bed bug exterminator (current) use of opiate analgesic 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 nervous system Office Visit 06/30/2019 11:15a Main Office as Pavel Duke G89.29 Other chronic Of 12/05/13 DO, MPH pain M43.16 Spondylolisthesis, lumbar region Z79.891 alf (current) use of opiate analgesic Office Visit 05/21/2019 9:45a Main Office as Pavel Duke G89.29 Other chronic Of 12/05/13 DO, MPH pain M54.5 Low back pain M43.16 Spondylolisthesis, lumbar region M48.061 Spinal stenosis, lumbar region without neurogenic doreen Z79.891 alf (current) use of opiate analgesic Office Visit [...] Z13.31 Encounter for screening for depression Z79.891 alf (current) use of opiate analgesic K51.819 Other [...] and surveillance Assessments Date Code Description Provider 09/01/2019 G89.29 Other chronic pain Duke, Pavel, DO, MPH 09/01/2019 M54.2 Cervicalgia Duke, Pavel, DO, MPH 09/01/2019 M54.5 Low back pain Duke, Pavel, DO, MPH 09/01/2019 M43.16 Spondylolisthesis, lumbar region Duke, Pavel, DO, MPH 09/01/2019 Z79.891 alf (current) use of opiate analgesic Duke, Pavel , DO, MPH 09/01/2019 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, Pavel, DO , MPH nervous system 07/30/2019 G89.29 Other chronic pain Duke, Pavel, DO, MPH 07/30/2019 M43.16 Spondylolisthesis, lumbar region Duke, Pavel, DO, MPH 07/30/2019 M54.2 Cervicalgia Duke, Pavel, DO, MPH 07/30/2019 M54.5 Low back pain Duke, Pavel, DO, MPH 07/30/2019 Z79.891 bed bug exterminator (current) use of opiate analgesic Duke, Pavel , DO, MPH 07/30/2019 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, Pavel, DO , MPH nervous system 06/30/2019 G89.29 Other chronic pain Duke, Pavel, DO, MPH 06/30/2019 M43.16 Spondylolisthesis, lumbar region Duke, Pavel, DO, MPH 06/30/2019 Z79.891 bed bug exterminator (current) use of opiate analgesic Duke, Pavel , DO, MPH 05/21/2019 G89.29 Other chronic pain Duke, Pavel, DO, MPH 05/21/2019 M54.5 Low back pain Duke, Pavel, DO, MPH 05/21/2019 M43.16 Spondylolisthesis, lumbar region Duke, Pavel, DO, MPH 05/21/2019 M48.061 Spinal stenosis, lumbar region without Duke, Pavel, DO, MPH neurogenic claudication 05/21/2019 Z79.891 alf (current) use of opiate analgesic Duke, Pavel [...] depression Duke, Pavel, DO, MPH 05/01/2019 Z79.891 bed bug exterminator (current) use of opiate analgesic Duke, Pavel , DO, MPH 05/01/2019 K51.819 Other ulcerative colitis with unspecified Duke, Pavel, DO, MPH complications 05/01/2019 Z86.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), and cerebral infarction without residual deficits 05/01/2019 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 Pavel Duke DO MPH 05/01/2019 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 Symptoms and complaints discussed and reviewed today. No significant changes in physical findings. Continue current medical pain management.M54.2 CervicalgiaComments:Chronic. Symptoms and complaints discussed and reviewed today. No significant changes in physical findings. Continue current medical pain management.M54.5 Low back painComments:Chronic. Symptoms and complaints discussed and reviewed today.No changes in physical findings. Patient is stable and comfortable when current medical therapy is rendered.M43.16 Spondylolisthesis, lumbar regionComments:Chronic. Symptoms and complaints discussed and reviewed today. No significant changes in physical findings. Continue current medical pain management.Z79.891 alf (current) use of opiate analgesicNew Labs:Urine Drug Screen, Ordered: 09/01/19Comments:Urine drug screen sample taken today to monitor opiate use and to monitor use of illicit substances.Will discuss results at next appointment.The following tests were ordered:6 AM, AMPH, MAIA, WALTER, BUP, CARIS, COCM, ETG, FENT, MCSHSG, OPI, OXY, PCP, TAPEN, XTSY, ZOLP. A urine drug test (UDT) was ordered for this patient and collected on site today. Creatinine has been ordered as well for specimen validity, not for kidney function. Preliminary UDT results are not final and should not be used to determine patient care or plan of treatment. Initially a qualitative immunoassay screen will bedone. Any inconsistent or positive findings will be further tested with a more comprehensive quantitative confirmation LCMS study. It is part of the treatment process of prescribing controlled substances and is considered standard of care.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 nervous systemComments:Sudomotor test report reviewed with the patient today. The test was Positive for possible autonomic dysfunction at this time. Will follow effects of pain and current medical treatment. Future testing will help to monitor the effects of chronic illness, pain and subsequent treatment on the autonomic nervous system. May retest in 3- 6 monthsAlpha lipoic acid 100 - 200 mg tid. suggested to patient. Thishas been shown to help with the neuropathic component of pain and autonomic dysfunction.AllComments:Continue current medical pain management; injection therapy, osteopathic [...] while maintaining satisfactory side effect profile andminimizing longwall shearer operator end-organ damage. Importance of regular nutrition throughout the day discussed.Activity as toleratedContinue with PCP Functional Status Description No Information Available Mental Status Description No Information Available Referrals Description No Information Available
--- OUTSIDE RECORDS SUMMARY | 2019-09-19 14:25 | XMS REPORT | Continuity of Care Document ---
:1940 External Reference #:[id number] Author Name Karime Basilio MD Address [address] [place] [address] Care Team Providers Name Role Phone Juan Alberto Gandhi MD Care Team Information Accessioner [phone] Kemi Fagan - Ophthalmology Care Team Information Accessioner Mariano Baeza MD - Obstetrics & Care Team Information Accessioner [phone] Gynecology Diane Marino - Gastroenterology Care Team Information Accessioner Jon Al MD Care Team Information Accessioner [phone] Lyndsay Briscoe M.D. - Sports Medicine Care Team Information Accessioner [facility] - Pain Care Team Information Accessioner [phone] Medicine Michael Bird - Cardiovascular Care Team Information Accessioner Disease [facility] - Therapeutic Care Team Information Accessioner [phone] Radiology José Manuel Anderson MD - Care Team Information Accessioner [phone] Gastroenterology Bashir Gómez DPM - Inspecting Machine Adjuster Care Team Information Accessioner [phone] Andrey Mejias MD - Surgery Care Team Information Accessioner Keegan Cadena DR Care Team Information Accessioner [phone] Care Team Information Accessioner [phone] Vinicio Cleveland MD Care Team Information Accessioner [phone] Problems Active Problems Provider Date Backache Pamela [...] Type/Frequency calisthenics; 12/20/16 counselled 150min per week 83259 steps per day Allergies, Adverse Reactions, Alerts [...] Code Status Date Vaccine Reaction Lot # [id number] Given 07/30/2019 Influenza Vaccine, Inactivated, Subunit, [place] [address] Given 05/21/2019 Shingrix (Shingles) Zoster given at pharmacy Vaccine HZV, Recombinant, Subunit, Adj 26970 Given 03/19/2019 Shingrix (Shingles) Zoster Vaccine HZV, Recombinant, Subunit, Adj 75746 Given 08/05/2018 Fluzone Highdose Age 65 And Over Preservative & Antibiotic Free 07792 Given 09/05/2017 Pneumococcal 23 Immunization Im inj completed, Pt [id number] Adult Or Immunosuppressed tolerated well Patient 18862 Given 08/12/2017 Influenza Virus Vaccine,Quadrivalent,Split,Pr eserv Free, 0.5mL,[place] [address] Given 08/13/2016 Prevnar 13 Pneumococal [id number] Conjugate Vaccine 44205 Given 08/09/2016 Fluzone Highdose Age 65 And [facility] Over Preservative & Antibiotic Free 68132 Given 08/18/2014 Afluria Or Fluvirin Flu Vac Intramuscular 03681 Given 08/06/2013 Afluria Or Fluvirin Flu Vac Intramuscular 65555 Given 08/10/2008 Zoster (Zostavax) 04695 Given 08/10/2008 Zoster (Zostavax) 53927 Refused 12/20/2016 Tdap (Adacel) Ages 7 And Above Only Vital Signs Date Vital Result Comment 08/28/2019 10:56am Weight 131.00 lb Heart Rate 58 /min BP Systolic 132 mmHg BP Diastolic 82 mmHg Respiratory Rate 18 /min Height 61.5 inches 5'1.50" O2 % BldC Oximetry 97 % ra BMI (Body Mass Index) 24.3 kg/m2 08/10/2019 8:42am Body Temperature 97.2 F Weight 130.00 lb Heart Rate 62 /min BP Systolic 138 mmHg BP Diastolic 72 mmHg Respiratory Rate 18 /min Height 61.5 inches 5'1.50" O2 % BldC Oximetry 99 % Ra BMI (Body Mass Index) 24.2 kg/m2 Results Test Date Facility Test Result H/L Range Note Alk Phos Isoenzymes-RL 06/26/2019 [facility] Alk Phos Total 103 U/L 1, 2 Alk Phos Liver Calc 77 U/L 3 Alk Phos Bone Calc 26 U/L 4 Alk Phos Other Calc 0 U/L 5 Hepatic Panel (LFT) 06/26/2019 [facility] Total Protein 5.8 g/dL Low 6.0- 8.0 Albumin 3.9 g/dL 3.6-4.9 Total Bilirubin 0.5 mg/dL 0.1-1.3 Direct Bilirubin 0.1 mg/dL 0.0-0.4 Alkaline Phosphatase 101 U/L 24-140 Alt 29 U/L 3-42 Ast 26 U/L 8-42 CBC with Auto Diff-fcmg 06/05/2019 [facility] WBC [...] Basophils 0.0 K/uL 0.0-0.3 Urinalysis With 06/04/2019 [facility] Urine Color YELLOW Yellow 7 Microscopic (315)- - Urine Clarity CLEAR Clear Urine Glucose - Dipstick NEGATIVE mg/dL Negative Urine Bilirubin - Dipstick NEGATIVE Negative Urine Ketone NEGATIVE mg/dL Negative Urine Specific [place] <= 1.005 Low 1.010-1.030 Urine Blood TRACE [...] CAT <SEE NOTE> 8 Comprehensive Metabolic 06/04/2019 [facility] Glucose 126 mg/dL High 74-106 [...] 132 U/L High 45-117 Laboratory test 06/04/2019 [facility] Lipase 194 U/L Normal 56-289 finding (315)- - CBS W/Automated 06/04/2019 [facility] White Blood 5.9 K/ uL Normal 3.1-10.7 [...] 40.4-72.8 Lymph % 14.4 % Low 20.0-42.0 [place] % 8.4 % Normal 4.3-13.2 Eo% 1.2 % Normal 0.0-6.6 Bas% 0.5 % Normal 0.0-1.1 Immature Grans 0.2 % Normal 0.0-5.0 NRBC % 0.0 /100WBC < 10/ 100 WBC Neut# 4.41 K/uL Normal 1.8-7.0 Lymph # 0.84 K/uL Low 1.0-4.0 [place] # 0.49 K/uL Normal 0.3-0.9 Eos # 0.07 K/uL Normal 0.0-0.5 Baso # 0.03 K/uL Normal 0.0-0.1 Immature Grans Absolute 0.01 K/uL NRBC # 0.00 K/uL Protime 06/04/2019 [facility] Protime 13.2 seconds Normal 12.0-14.4 (315)- - Inr 1.0 Normal 0.9-1.1 10 Laboratory test 06/04/2019 [facility] Act Partial 26.6 seconds Normal 23.4-35.0 11 finding (315)- - Thrombo Time Laboratory test 06/04/2019 [facility] Occult NEGATIVE Negative 12 finding (315)- - Blood,Stool Lactic Acid 06/04/2019 [facility] Lactic Acid 1.9 mmol/L Normal 0.4-1.9 (315)- - Lab Reflex >2.0 for Sepsis? Y [facility] 05/25/2019 [facility] WBC 4.1 K/uL 4.1-11.0 [...] Alk-Phosphatase Liver Calc Bone Specific Alkaline Phosphatase (6446947) and 5'-nucleotidase (2671482) may be useful in identifying disorders of bone and liver, respectively. 4 Reference range: 0 to 55 5 Performed by [facility], [address] [place] [id number] [email or web address], Aaron Koo MD, Lab. Director Unless otherwise specified, testing performed by [facility], [address] [address] 6 today letter [address] BASILIO,FAISALCK STOOLS,NAUSEA 8 URINE, CLEAN CATCH 9 Note: [...] Is patient on anticoagulants? 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, lumbar region M48.061 Spinal stenosis, lumbar region without neurogenic doreen M50.30 Other cervical disc degeneration, unsp cervical region Office Visit 07/07/2019 11:30a Karime Brunner MD N94.810 Vulvar vestibulitis R10.31 RIGHT lower quadrant pain M48.061 Spinal stenosis, lumbar region without neurogenic doreen M51.36 Other intervertebral disc degeneration, lumbar region R10.2 Pelvic and perineal pain Office Visit 06/29/2019 11:30a [facility] Karime Basilio MD K13.79 Other lesions of oral mucosa 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, lymph nodes of head, face, and neck Office Visit 06/05/2019 1:15p [facility] Karime Basilio MD R11.0 Nausea R42 Dizziness and giddiness R19.5 Other fecal abnormalities G47.9 Sleep disorder, unspecified Office Visit 05/25/2019 10:00a [facility] Karime Basilio MD R11.0 Nausea R42 Dizziness and giddiness I95.1 Orthostatic hypotension 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, lymph nodes of head, face, and neck L29.8 Other pruritus Office Visit 03/18/2019 8:45a [facility] Karime Basilio MD J34.1 Cyst and mucocele [...] RIGHT knee Assessments Date Code Description Provider 08/28/2019 M50.30 Other cervical disc degeneration, unspecified Karime Basilio MD cervical region 08/28/2019 M48.02 Spinal stenosis, cervical region Karime Basilio MD 08/10/2019 M51.36 Other intervertebral disc degeneration, Karime Basilio MD lumbar region 08/10/2019 M48.061 Spinal stenosis, lumbar region without Karime Basilio MD neurogenic claudicati 08/10/2019 M50.30 Other cervical disc degeneration, unspecified Karime Basilio MD cervical region 07/07/2019 N94.810 Vulvar vestibulitis Karime Basilio MD 07/07/2019 R10.31 RIGHT lower quadrant pain Karime Basilio MD 07/07/2019 M48.061 Spinal stenosis, lumbar [...] R94.5 Abnormal results of liver function studies [facility] 06/05/2019 R11.0 Nausea Karime Basilio MD 06/05/2019 R11.0 Nausea Karime Basilio MD 06/05/2019 R19.5 Other fecal abnormalities Karime Basilio MD 06/05/2019 R42 Dizziness and giddiness Karime Basilio MD 06/05/2019 R19.5 Other fecal abnormalities Karime Basilio MD 06/05/2019 G47.9 Sleep disorder, unspecified Karime Basilio MD 06/05/2019 R11.0 Nausea Schedule, Laboratory 06/05/2019 R19.5 Other fecal abnormalities Schedule, Laboratory 06/05/2019 R11.0 Nausea [facility] 06/05/2019 R19.5 Other fecal abnormalities [facility] 05/25/2019 R11.0 Nausea Karime Basilio [...] Orthostatic hypotension Schedule, Laboratory 05/25/2019 R11.0 Nausea [facility] 05/25/2019 R42 Dizziness and giddiness [facility] 05/25/2019 I95.1 Orthostatic hypotension [facility] 03/18/2019 J34.1 Cyst and mucocele [...] hyperlipidemia Schedule, Laboratory 03/11/2019 E78.2 Mixed hyperlipidemia [facility] Plan of Treatment Future Appointment(s):09/22/2019 9:00 am - Karime Basilio MD at [facility]2018 8:05 am - Schedule, Laboratory at [facility]08/28/2019 - Karime Basilio, MDM50.30 Other cervical disc degeneration, unspecified cervical regionComments: cervical disc degeneration on xrays, see discussion belowFollow up:fu as syndjdzT59.02 Spinal stenosis, cervical regionComments:pt with cervical spine stenosis and severe neuroforaminal narrowing at multiple levels. She is planning to see a neurosurgery but can't seen him until November. She has pain management with Dr Duke. She asks for what can be done: tylenol up to 3000mg per daynsiad ie naproxen or celecoxib, cautioned renal, cardiovascular and gi risks. Has a ho colitis. moist heat and coldmassage therapy physical therapy Lyrica or gabapentin as neuropathic pain meds. Discussed use of duloxetine for depression for chronic pain. Suggest having adequate vit d intake, deficiency has been associated with chronic pain , her last was about 40 in 2017. Suggest at least 800 iu vit d3 per day, will add to next labs. I don'trecommend narcotics for chronic pain management, reminded risks for respiratory suppression and with oxycodone and alprazolam combined. Next is referral to spine doctor and pain management for consideration of spine injections, or spinal stimulator therapy. Next is referral to a surgeon, would do sooner if there is significant neuro defects such as weakness, numbness, abnormal reflexes. Needs to call for numbness, weakness, bowel or bladder problems, treesa if rapidly progressive or sudden.With discussion, she will call Dr Barksdale or Dr Duke for spine injections. 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 no sat/ AM [address] [facility] [place] [place] [address] [place] [address] [phone] right groin aching, known spinal Patient Declined 2018 stenosis ,patient is concerned for other causes Scheduled with Giulia, patient aware of appt. 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 -TRS 03/18 [facility] [address] [place] [address] [phone] yrs ago right knee torn meniscus dx by Closed 03/24/2019 [place], would liek to have reeval , and has heel pain faxed direct 03/18 -TRS Scheduled with Collin ANDERSON on pt's home regarding appt date, time and location. -TRS 03/18 [facility] [address] [place] [address] [phone]
[2019-09-19 14:34] VITALS: BP 145/61
--- NOTE | 2019-09-19 14:56 | UC ---
Headache HPI - HPI Summary HPI Summary: Awoke yesterday with right maxillary sinus pain with tooth pain below it. Over the last several months has had right parietal burning headache pain, since treatment for the lymphoma - History Of Current Complaint Chief Complaint: UCGeneralIllness Stated Complaint: FEVER Time Seen by Provider: 09/19/19 14:35 Hx Obtained From: Patient Onset/Duration: Sudden Onset, Lasting Days - 2, Still Present Onset Of Symptoms: Sudden - awoke with headache Initially Headache Was: Moderate Pain Intensity: 5 Timing: Constant Character: Dull, Pressure - in the maxillary sinus area Location of Headache: Frontal - and maxillary Allevating Factor(s): Nothing Associated Signs And Symptoms: Positive: Sinus Pressure, Fever. Negative: Seizure, Nausea, Vomiting, Neck Pain, Neck Stiffness, Decreased LOC, Visual Changes - Allergies/Home Medications Allergies/Adverse Reactions: Allergies Allergy/AdvReac Type Severity Reaction Status Date / Time No Known Allergies Allergy Verified 09/19/19 14:32 PMH/Surg Hx/FS Hx/Imm Hx Other Cancer History: B Cell Lymphoma - Surgical History Surgical History: Yes Surgery Procedure, Year, and Place: LEFT KNEE SCOPING X2; 12/2016 LEFT KNEE REPLACEMENT; PARTIAL HYSTERECTOMY/APPENDIX ; LEFT SHOULDER ROTATOR CUFF; 04/2018 DEVIATED SEPTUM; HEMORRHOID SURGERY;. PORT PLACEMENT,BILATERAL CATARACT REPAIR , 2 SINUS BIOPSIES - Family History Known Family History: Positive: None Negative: Diabetes - Social History Occupation: Retired Lives: With Family Alcohol Use: None Substance Use Type: None Smoking Status (MU): Never Smoked Tobacco Have You Smoked in the Last Year: No - Immunization History Most Recent Influenza Vaccination: August 2015 Review of Systems All Other Systems Reviewed And Are Negative: Yes Constitutional: Positive: Fever, Chills, Fatigue Eyes: Positive: Drainage - OD, Eye Redness - OD ENT: Positive: Sinus Pain/Tenderness Is Patient Immunocompromised?: No Physical Exam Triage Information Reviewed: Yes Appearance: No Pain Distress, Well-Nourished, Ill-Appearing Vital Signs: Initial Vital Signs Temp 100.3 F 09/19/19 14:28 Pulse 116 09/19/19 14:28 Resp 16 09/19/19 14:28 BP 145/61 09/19/19 14:28 Pulse Ox 95 09/19/19 14:28 Vital Signs Reviewed: Yes Eyes: Positive: Conjunctiva Inflamed - OD, Discharge - Purulent OD ENT: Positive: Pharynx normal, TMs normal Neck exam: Normal Respiratory Exam: Normal Cardiovascular Exam: Normal Musculoskeletal Exam: Normal Neurological: Positive: Other: - Increased sensitivity to pinprick right parietal scalp Psychological Exam: Normal Skin Exam: Normal Headache Course/Dx - Differential Dx/Diagnosis Differential Diagnosis/HQI/PQRI: Migraine, Sinus Headache, Tension Headache, Viral Syndrome Provider Diagnosis: Acute bacterial sinusitis, Viral conjunctivitis of right eye Discharge ED - Sign-Out/Discharge Documenting (check all that apply): Patient Departure All imaging exams completed and their final reports reviewed: No Studies - Discharge Plan Condition: Stable Disposition: HOME Prescriptions: Amoxicillin PO (*) [Amoxicillin 875 MG (*)] 875 mg PO BID #20 tab Erythromycin OPTH OINT* [Erythromycin 0.5% OPTH OINT*] 1 applic RIGHT EYE TID # 3.5 gm Patient Education Materials: Sinusitis (ED), Conjunctivitis (ED) Referrals: Karime Silva MD [Primary Care Provider] - Additional Instructions: NASAL SPRAYS AND DROPS: Afrin in the PUMP/ MIST bottle (Get generic 12 hours nasal decongestant spray). Tilt your head down and look at the floor while doing the spray, "nose to toes". Decongestant nasal sprays and drops often give dramatic relief from congestion. They are often recommended for patients with sinus infection to assist with sinus drainage. Persons with high blood pressure should consult the doctor before using these nasal sprays. Afrin and Phuc-Synephrine are common alnw-uam-qtqkzzn preparations. They should not be used for more than five days, as "rebound" congestion can occur - - the congestion flares as the drug wears off. A way of dealing with this rebound congestion problem is to medicate only one nostril each time, allowing the other nostril to recover from the medicine' s effects. When you no longer need the drug during the day, spray only one nostril each night. This helps you sleep well without severe rebound congestion. Call the doctor if you develop severe headache, palpitations, or chest pain. EYE OINTMENT USE: Wash hands. Place 1/4" strip across tip of finger. Pull lower lid down with the index finger and stabilize the ointment finger with the middle finger and scrape the ointment off on the lid. Pull the lid out and let go as you look down. - Billing Disposition and Condition Condition: STABLE Disposition: Home
== END 2019-09-19 15:12 | disposition home or self-care (01) ==
LOC: UCCORT 14:11
DX: J01.90 Acute sinusitis, unspecified (principal); B96.89 Other specified bacterial agents as the cause of diseases classified elsewhere; B30.9 Viral conjunctivitis, unspecified; Z85.72 Personal history of non-Hodgkin lymphomas
CPT/HCPCS: 99212; G0463

== ENCOUNTER 2022-04-12 05:39 | Observation (INO) ==
[~2022-04-12 05:39] MED LIST: Naloxone 0.4 mg VIAL 0.4 mg/ml 1 ml VIAL IV PRN; Ondansetron 4 mg VIAL 2 MG/ML 2 ml VIAL IV PRN; fentaNYL 100 mcg/2 ml 50 MCG/ML VIAL IV PRN
[2022-04-12] MEDS ORDERED: Lactated Ringers 1000 ml BAG 1,000 ML IV SCH ×3 (06:00→19:00)
[2022-04-12] MEDS ORDERED: Buffered Lidocaine 1% SYRIN 1 ml INTRADERM ONE (06:00)
[2022-04-12] MEDS ORDERED: ceFAZolin 2 GM PREMIX 2 GM/50 ML BAG ONE (06:27)
[2022-04-12] MEDS ORDERED: fentaNYL 100 mcg/2 ml 50 MCG/ML VIAL ONE ×3 (07:00→10:39)
[2022-04-12 07:11] LABS: Rapid COVID-19 Molecular Undetected (Undetected)
[2022-04-12] MEDS ORDERED: Bupivacaine 0.5% PF 10 ML SDV VIAL INJ ONE (07:34)
[2022-04-12] MEDS ORDERED: EPHEDrine (Pressors) 50 MG/ML VIAL ONE (08:15)
[2022-04-12] MEDS ORDERED: Phenylephrine IV 10 MG/ML 1 ml VIAL ONE (08:15)
[2022-04-12] MEDS ORDERED: Morphine 2 MG/ML SYRINGE IV PRN (10:30)
[2022-04-12] MEDS ORDERED: Ondansetron 4 mg VIAL 2 MG/ML 2 ml VIAL IV PRN (10:30)
[2022-04-12] MEDS ORDERED: Ondansetron ODT 4 mg TAB 4 MG TAB PO PRN (10:30)
[2022-04-12] MEDS ORDERED: Lactulose 30 ml UDC PO PRN (10:30)
[2022-04-12] MEDS ORDERED: Magnesium Hydroxide LIQ 30 ML UDC PO PRN (10:30)
[2022-04-12] MEDS: ceFAZolin 1 GM ADVAN 1 GM in NS 0.9% 50 ML 50 ML IVPB SCH ×2 (15:54→23:51)
[2022-04-12] MEDS ORDERED: Lactated Ringers 500 ml BAG 500 ML IV ONE (18:18)
[2022-04-12] MEDS ORDERED: KETOTIFEN FUMARATE BOTH EYES SCH (21:00)
[2022-04-12] MEDS: Magnesium Hydroxide LIQ 30 ML UDC PO SCH (21:02)
[2022-04-13 05:52] LABS: Hematocrit 32 % (35-47); Hemoglobin 10.8 g/dL (12.0-16.0); Mean Platelet Volume 8.6 fL (7.4-10.4); Platelet Count 160 10^3/uL (150-450)
[2022-04-13 06:15] LABS: Calcium 8.3 mg/dL (8.6-10.3); eGFR CKD-EPI 76.5 (>60)
[2022-04-13] MEDS: ceFAZolin 1 GM ADVAN 1 GM in NS 0.9% 50 ML 50 ML IVPB SCH (08:28)
[2022-04-13] MEDS: Magnesium Hydroxide LIQ 30 ML UDC PO SCH (08:29)
[2022-04-13] MEDS ORDERED: NS 0.9% 1000 ml BAG 1,000 ML IV ONE ×2 (08:43→11:20)
[2022-04-13] MEDS ORDERED: Vitamin THERAPEUTIC TAB PO SCH (09:00)
[2022-04-13 09:19] LABS: Rapid COVID-19 Molecular Undetected (Undetected)
[2022-04-13] MEDS ORDERED: Lactated Ringers 1000 ml BAG 1,000 ML IV SCH (10:20)
[2022-04-13 11:31] VITALS: BP 108/54
== END 2022-04-13 11:43 ==
LOC: INTOOBSV 05:39 → AA 05:39 → SSU 10:30
PROVIDERS: ADMIT Orthopaedic Surgery Adult Reconstructive Orthopaedic Surgery; ATTEND Orthopaedic Surgery Adult Reconstructive Orthopaedic Surgery